=== PATIENT | male | born 1955 | race Caucasian/White ===

== ENCOUNTER 2019-09-19 10:18 | Emergency (ER) | payer OTHER ==
[~2019-09-19] VITALS: Ht 208.3 cm; Wt 93.0 kg
[2019-09-19 10:23] VITALS: BP 108/72
--- NOTE | 2019-09-19 10:41 | NUR ---
PT AMBULATED TO ER BED 2
--- NOTE | 2019-09-19 10:45 | NUR ---
63/M REFERRED FROM URGENT CARE FOR FEVER 102.2. TOOK TYLENOL 2 TABS AT 9 AM TODAY. TEMP 96.1 TEMPORAL AT TRIAGE. RECHECKED ORAL TEMP NOW WITH RESULT OF 98.6. C/O FEVER X 1 DAYS. C/O PAIN IN BL HANDS AND BL KNEE AND LOWER LEG PAIN X 1 YEAR; PT STATES HE BELIEVES HE DOES HAVE ARTHRITIS . DENIES COUGH, SOB, N/V, TRAUMA. PT WELL-APPEARING. NO RESP DISTRESS. AOX4. MED HX: DM
--- NOTE | 2019-09-19 10:49 | NUR ---
ERMD BEDSIDE EVALUATING PT
--- NOTE | 2019-09-19 11:12 | NUR ---
Patient discharged with v/s stable. Written and verbal after care instructions given and explained. Patient alert, oriented and verbalized understanding of instructions. Ambulatory with steady gait. All questions addressed prior to discharge. ID band removed. Patient advised to follow up with PMD. Rx of GABAPENTIN AND MOTRIN given. Patient educated on indication of medication including possible reaction and side effects. Opportunity to ask questions provided and answered.
[2019-09-19 11:15] VITALS: BP 108/72
== END 2019-09-19 11:12 | disposition home or self-care (01) ==
LOC: MED 10:18
DX: E11.40 Type 2 diabetes mellitus with diabetic neuropathy, unspecified (principal); M79.641 Pain in right hand; M79.642 Pain in left hand; M79.671 Pain in right foot; M79.672 Pain in left foot
CPT/HCPCS: 99283

== ENCOUNTER 2019-11-03 08:25 | Emergency (ER) | payer OTHER ==
[~2019-11-03] VITALS: Ht 167.6 cm; Wt 90.7 kg
[~2019-11-03 08:25] MED LIST: ALBU0.0912 IH; APIX5TAB PO
[2019-11-03 08:47] VITALS: BP 131/82
--- NOTE | 2019-11-03 08:57 | NUR ---
pt ambulate to room 9 with steady gait.
--- NOTE | 2019-11-03 08:58 | NUR ---
irene shepard.dr gilliland and [place] fischer aware and informed.
== END 2019-11-03 08:58 | disposition left against medical advice (07) ==
LOC: MED 08:25
DX: M25.552 Pain in left hip (principal); Z53.21 Procedure and treatment not carried out due to patient leaving prior to being seen by health care provider
CPT/HCPCS: 99281

== ENCOUNTER 2019-11-10 18:13 | Emergency (ER) | payer OTHER ==
[~2019-11-10] VITALS: Ht 182.9 cm; Wt 84.4 kg
[2019-11-10 18:13] VITALS: BP 145/54
--- NOTE | 2019-11-10 18:16 | NUR ---
BIBA AND PLACED IN BED 02
--- NOTE | 2019-11-10 18:24 | NUR ---
HX DM, HTN
--- NOTE | 2019-11-10 18:24 | NUR ---
PT BIBA FROM HOME C/O CONSTIPATION W/O ABDOMINAL PAIN. ABDOMEN IS SOFT, DISTENDED, NON-TENDER TO PALPATION. AAOX4 WITH EVEN AND STEADY GAIT; LUNGS CLEAR BL; HR EVEN AND REGULAR; PT DENIES ANY FEVER, CP, SOB, OR COUGH AT THIS TIME; PATIENT STATES PAIN OF 0/10 AT THIS TIME; VSS; PATIENT POSITIONED FOR COMFORT; HOB ELEVATED; BEDRAILS UP X2; BED DOWN. ER MD MADE AWARE OF PT STATUS.
--- NOTE | 2019-11-10 19:13 | NUR ---
ASSUMED PATIENT CARE.
--- NOTE | 2019-11-10 19:15 | NUR ---
REPORT TO ZABRINA ALBERTS. TRANSFER OF CARE AT THIS TIME.
--- NOTE | 2019-11-10 20:00 | NUR ---
A/OX4; GCS 15; CLEAR BREATH SOUNDS BILATERALLY; ABDOMINAL SOUNDS ARE PRESENT; ABDOMEN DISTENDED WITH SLIGHT TENDERNESS; RATES 0/10 PAIN. SKIN DRY AND INTACT. VSS. ERMD MADE AWARE OF STATUS. SIDE RAILSX2; WILL CONTINUE TO MONITOR.
--- NOTE | 2019-11-10 20:14 | NUR ---
PATIENT RESTING IN BED. NO DISTRESS NOTED. WILL CONTINUE TO MONITOR.
[2019-11-10] MEDS ORDERED: SODIUM PHOSPHATE 118 ML ENEM RC ONE (20:40)
--- NOTE | 2019-11-10 20:50 | NUR ---
ADMINISTERED FLEET'S ENEMA. PATIENT TOLERATED WELL. WILL CONTINUE TO MONITOR.
--- NOTE | 2019-11-10 20:50 | NUR ---
PATIENT AMBULATED TO RESTROOM WITH STEADY GAIT.
[2019-11-10] MEDS ORDERED: MAGNESIUM CITRATE 300 ML BTL PO ONE (20:55)
[2019-11-10 21:50] VITALS: BP 135/80
--- NOTE | 2019-11-10 21:50 | NUR ---
PATIENT OKAY TO DISCHARGEPatient discharged with v/s stable. Written and verbal after care instructions given and explained. Patient verbalized understanding. Ambulatory with steady gait. All questions addressed prior to discharge. Advised to follow up with PMD.
== END 2019-11-10 21:50 | disposition home or self-care (01) ==
LOC: MED 18:13
DX: K59.00 Constipation, unspecified (principal); E11.9 Type 2 diabetes mellitus without complications; I10 Essential (primary) hypertension; Z79.899 Other long term (current) drug therapy
CPT/HCPCS: 99284

== ENCOUNTER 2021-03-02 09:52 | Inpatient (IN) | payer OTHER ==
[~2021-03-02] VITALS: Ht 175.3 cm; Wt 89.8 kg
--- NOTE | 2021-03-02 09:56 | NUR ---
BIB WHEELCHAIR TO ER BED 4
[2021-03-02 10:02] VITALS: BP 115/65
[2021-03-02 10:03] VITALS: BP 115/65
--- NOTE | 2021-03-02 10:13 | NUR ---
pt bib private vehicle, sent by for right foot swelling and diabetic ulcer to right ankle x3 days.
--- NOTE | 2021-03-02 10:57 | NUR ---
TELEVISION PICTURE TUBE REBUILDER AT PT BEDSIDE.
--- NOTE | 2021-03-02 11:04 | NUR ---
HOSPITAL ADMITTING CLERK AT PT BEDSIDE.
--- NOTE | 2021-03-02 11:09 | NUR ---
US TECH AT PT BEDSIDE.
[2021-03-02 11:36] LABS: BASOPHILS # (AUTO) 0.1 K/uL (0.00-0.22); EOSINOPHILS # (AUTO) 0.3 K/uL (0-0.4); EOSINOPHILS % (AUTO) 2.7 % (0.0-4.0); HEMATOCRIT 33.3 % (36-52); HEMOGLOBIN 11.2 g/dL (12.0-18.0); LYMPHOCYTES # (AUTO) 1.1 K/uL (2.0-11.5); LYMPHOCYTES % (AUTO) 12.1 % (20.5-51.1); MEAN CORPUSCULAR HEMOGLOBIN 32 pg (27-31); MEAN CORPUSCULAR HGB CONC 34 g/dL (33-37); MEAN CORPUSCULAR VOLUME 95.7 fL (80-94); MONOCYTES # (AUTO) 0.7 K/uL (0.8-1.0); MONOCYTES % (AUTO) 7.3 % (1.7-9.3); NEUTROPHILS # (AUTO) 7.1 K/uL (1.8-7.7); NEUTROPHILS % (AUTO) 76.9 % (42.2-75.2); PLATELET COUNT (AUTO) 349 K/uL (140-450); RED BLOOD CELL COUNT(AUTO) 3.48 MIL/uL (4.20-6.10); RED CELL DISTRIBUTION WIDTH 13.8 % (11.6-13.7); WHITE BLOOD COUNT (AUTO) 9.2 K/uL (4.8-10.8)
[2021-03-02 11:57] LABS: ALBUMIN 2.7 g/dL (3.4-5.0); ANION GAP 12.9 (8-16); CARBON DIOXIDE 28.9 mmol/L (21-32); CREATININE 1.7 mg/dL (0.6-1.3); POTASSIUM 4.8 mmol/L (3.5-5.1); TOTAL BILIRUBIN 0.3 mg/dL (0.0-1.0)
[2021-03-02] MEDS ORDERED: VANCOMYCIN 1,000 MG in DEXTROSE 5% 250 ML IV ONE (12:10)
[2021-03-02] MEDS ORDERED: NACL 0.9% 1,000 ML IV ONE (12:10)
[2021-03-02] MEDS ORDERED: PIPERACILLIN/TAZOBACTAM 3.375 GM in DEXTROSE 5% 50 ML IV ONE (12:10)
[2021-03-02] MEDS ORDERED: VANCOMYCIN 1,000 MG VIAL ONE (12:20)
[2021-03-02] MEDS ORDERED: PIPERACILLIN/TAZOBACTAM 3.375 GM VIAL IV ONE (12:20)
[2021-03-02] MEDS ORDERED: VANCOMYCIN PER PHARMACY MC SCH (13:50)
[2021-03-02] MEDS ORDERED: POTASSIUM CHLORIDE 10 MEQ TABER PO PRN (13:55)
[2021-03-02] MEDS ORDERED: ONDANSETRON 4 MG/2 ML VIAL IVP PRN (13:55)
[2021-03-02] MEDS ORDERED: MAGNESIUM OXIDE 400 MG TAB PO PRN (13:55)
[2021-03-02] MEDS ORDERED: NACL 0.9% 1,000 ML IV SCH (13:55)
[2021-03-02] MEDS ORDERED: DEXTROSE 50% 50 ML SYR IVP PRN (13:55)
[2021-03-02] MEDS ORDERED: ACETAMINOPHEN 325 MG TAB PO PRN (13:55)
[2021-03-02] MEDS ORDERED: HYDROcodone/APAP 5/325 MG 1 TAB TAB PO PRN (13:55)
[2021-03-02] MEDS ORDERED: VANCOMYCIN 500 MG VIAL IV SCH (14:00)
--- NOTE | 2021-03-02 16:01 | NUR ---
PAGED DR MENDEZ REGARDING LACTIC RESULTS.
--- NOTE | 2021-03-02 16:42 | NUR ---
BS 111
[2021-03-02] MEDS: BLOOD GLUCOSE MONITORING 1 DEV DEV FS SCH ×2 (16:46→21:17)
--- NOTE | 2021-03-02 16:46 | NUR ---
PAGED DR MENDEZ 2ND TIME FOR FURTHER ORDERS FOR ELEVATED LACTIC ACID
--- NOTE | 2021-03-02 17:38 | NUR ---
PAGED DR MENDEZ 3RD TIME FOR ORDERS.
--- NOTE | 2021-03-02 18:03 | NUR ---
SPOKE TO DR VELASQUEZ WITH NEW ORDERS NOTED.
[2021-03-02] MEDS: NACL 0.9% 1,000 ML IV SCH (18:13)
--- NOTE | 2021-03-02 18:52 | NUR ---
PAGED DR PIÑA REGARDING CHANGE ON VITALS, PT HR MORE ELEVATED AND BP IS CONSISTENTLY LOWER THEN TRENDS DURING THE DAY. PT APPEARS MORE WEAK. NS INFUSING AT 125ML/HR PER ORDER. WILL CONTINUE TO MONITOR.
--- NOTE | 2021-03-02 19:01 | NUR ---
SPOKE TO DR PIÑA WITH ORDERS FOR 500ML BOLUS
[2021-03-02] MEDS ORDERED: NACL 0.9% 500 ML IV ONE ×2 (19:05)
--- NOTE | 2021-03-02 19:16 | NUR ---
REPORT GIVEN TO CRISTIAN GERBER
--- NOTE | 2021-03-02 19:16 | NUR ---
REPORT RECEIVED FROM ZABRINA HARO FOR CONTINUITY OF PT CARE.
--- NOTE | 2021-03-02 19:25 | NUR ---
PT LAYING IN BED IN L LATERAL POSITION, HOB ELEVATED. BED LOCKED IN LOWEST POSITION W X2 SIDERAILS UP FOR PT SAFETY. C/O R FOOT PAIN 5/10. BREATHING EVEN AND UNLABORED. VSS. NAD NOTED, WILL CONTINUE TO MONITOR. SIGNIFICANT OTHER AT BEDSIDE.
--- NOTE | 2021-03-02 19:38 | NUR ---
NS RUNNING TO L AC W 480ML VTBI AT 125 ML/HR TO L AC 20G.
--- NOTE | 2021-03-02 20:29 | NUR ---
CALLED ZABRINA DILLARD TO GIVE REPORT. NO ANSWER AT THIS TIME. WILL CALL BACK.
[2021-03-02] MEDS: INSULIN LISPRO SLIDING SCALE 100 UNITS/ML VIAL SUBQ PRN (21:20)
--- NOTE | 2021-03-02 21:22 | NUR ---
Pt report given to ZABRINA DILLARD. Transfer of care at this time.
--- NOTE | 2021-03-02 21:30 | NUR ---
RECEIVED REPORT OVER THE PHONE FROM ER NURSE.
--- NOTE | 2021-03-02 21:35 | NUR ---
Patient will be admitted to care of DR. MENDEZ. Admited to MED/SURG. Will go to room 105B. Belongings list completed. Report to ZABRINA DILLARD.
[2021-03-02 22:00] VITALS: BP 97/55
--- NOTE | 2021-03-02 22:00 | NUR ---
PT ARRIVED VIA GURNEY, HE IS AOX4 ON ROOM AIR HE HAS A 20G LAC INTACT AND ASYMPTOMATIC. HIS SKIN IS INTACT EXCEPT FOR SEVERAL SCABS ON THE LEFT ARM AND BILATERAL LOWER LEGS AND FEET NOTED WITH PITTING EDEMA + 2. PT ABDOMEN LARGE FIRM AND DISTENDED. PT SAID HIS LAST BM WAS THIS MORNING. NORMAL SALINE HUNG AND RUNNING ORDERED. ALL FALLS PRECAUTIONS IN PLACE.
--- NOTE | 2021-03-02 23:00 | NUR ---
MRSA SWAB DONE AT BEDSIDE, ADMISSION QUESTIONS ASKED AND ANSWERED WITH ASSISTANCE OF [employer] PHONE QUARTER LINING SMOOTHER SYSTEM WITH QUARTER LINING SMOOTHER [employer] AC[employer] NUMBER #[id number].
--- NOTE | 2021-03-03 | NUR ---
ROUNDS DONE, ALL REQUESTED NEEDS ATTENDED , COMMODE AND URINAL PROVIDED AT BEDSIDE, ALL FALLS PRECAUTIONS IN PLACE.
[2021-03-03] MEDS: NACL 0.9% 1,000 ML IV SCH ×3 (01:45→17:45)
--- NOTE | 2021-03-03 02:00 | NUR ---
ROUNDS DONE, ALL REQUESTED NEEDS ATTENDED. ALL ORDERED PRECAUTIONS IN PLACE.
[2021-03-03 04:00] VITALS: BP 113/66
[2021-03-03] MEDS: BLOOD GLUCOSE MONITORING 1 DEV DEV FS SCH ×4 (05:43→21:00)
[2021-03-03] MEDS: MORPHINE SULFATE 4 MG/ML SYR IVP PRN ×2 (05:45→13:50)
--- NOTE | 2021-03-03 06:01 | NUR ---
PT FINGERSTICK IS 106, NO HUMALOG COVERAGE NEEDED. LAB DRAWS AT BEDSIDE DONE, PT GIVEN IVP/PRN MORPHINE FOR SEVERE PAIN IN RIGHT LEG. PT ASSISTED WITH URINAL , TURNED AND REPOSITIONED IN BED. HE IS RESTING COMFORTABLY WITH ALL ORDERED PRECAUTIONS IN PLACE.
--- NOTE | 2021-03-03 07:15 | NUR ---
RECEIVE REPORT FROM BUSINESS CONTINUITY MANAGER NURSE FOR CONTINUITY OF CARE. PATIENT SLEEPING. NO ACUTE DISTRESS NOTED. PATIENT ON ROOM AIR. ALL SAFETY MEASURES IN PLACE. CALL LIGHT WITHIN REACH. WILL CONTINUE TO MONITOR.
[2021-03-03 07:30] LABS: BASOPHILS # (AUTO) 0.1 K/uL (0.00-0.22); BASOPHILS % (AUTO) 0.9 % (0.0-2.0); EOSINOPHILS # (AUTO) 0.7 K/uL (0-0.4); EOSINOPHILS % (AUTO) 9.1 % (0.0-4.0); HEMATOCRIT 30.9 % (36-52); HEMOGLOBIN 10.3 g/dL (12.0-18.0); LYMPHOCYTES # (AUTO) 1.6 K/uL (2.0-11.5); LYMPHOCYTES % (AUTO) 19.9 % (20.5-51.1); MEAN CORPUSCULAR HEMOGLOBIN 32 pg (27-31); MEAN CORPUSCULAR HGB CONC 33 g/dL (33-37); MEAN CORPUSCULAR VOLUME 96.2 fL (80-94); MONOCYTES # (AUTO) 0.4 K/uL (0.8-1.0); MONOCYTES % (AUTO) 5.5 % (1.7-9.3); NEUTROPHILS # (AUTO) 5.2 K/uL (1.8-7.7); NEUTROPHILS % (AUTO) 64.6 % (42.2-75.2); PLATELET COUNT (AUTO) 335 K/uL (140-450); RED BLOOD CELL COUNT(AUTO) 3.21 MIL/uL (4.20-6.10)
[2021-03-03 07:51] LABS: ANION GAP 12.8 (8-16); CARBON DIOXIDE 28.1 mmol/L (21-32); CREATININE 1.2 mg/dL (0.6-1.3); POTASSIUM 3.9 mmol/L (3.5-5.1)
[2021-03-03 08:00] VITALS: BP 130/71
[2021-03-03] MEDS ORDERED: CLIN300C2 PO (08:57)
[2021-03-03] MEDS: DOCUSATE SODIUM 100 MG GELCAP PO SCH (09:06)
[2021-03-03] MEDS: VANCOMYCIN 1,000 MG in DEXTROSE 5% 250 ML IV SCH ×2 (09:08→22:00)
--- NOTE | 2021-03-03 09:21 | NUR ---
PATIENT AWAKE AND ALERT. NO ACUTE DISTRESS NOTED. PATIENT ON ROOM AIR. PATIENT DENIES PAIN AT THIS TIME. SCHEDULED MEDICATION GIVEN. ALL SAFETY MEASURES IN PLACE. CALL LIGHT WITHIN REACH. WILL CONTINUE TO MONITOR.
--- NOTE | 2021-03-03 10:11 | NUR ---
PATIENT HAS BEEN SCREENED AND CATEGORIZED MODERATE NUTRITION RISK. PATIENT WILL BE SEEN WITHIN 3-5 DAYS OF ADMISSION. 03/05/21 03/07/[address]
--- NOTE | 2021-03-03 11:20 | NUR ---
PATIENT AWAKE AND ALERT. NO ACUTE DISTRESS NOTED. PATIENT ON ROOM AIR. PATIENT DENIES PAIN AT THIS TIME. ALL SAFETY MEASURES IN PLACE. CALL LIGHT WITHIN REACH. WILL CONTINUE TO MONITOR.
--- NOTE | 2021-03-03 11:28 | NUR ---
DC PLANNIN YRS OLD MALE PATIENT WAS ADMITTED FROM HOME WITH A DX OF RIGHT LOER FOOT CELLULITIS. PATIENT HAS A HX OF DM, HTN, HLD AND RIGHT MENISCUS REPAIR . US OF RT LOWER EXT NEGATIVE FOR DVT X RAY OF RT KNEE NO FRACTURE . ADMINISTERED IVF, IV ABX VANCOMYCIN AND CONTINUED HOME MEDS. PT EVALUATION DONE AND RECOMMENDED ACUTE REHAB. CALLED [facility] SPOKE WITH ZANE STATED THEY DON'T HAVE ANY CLINICALS AND NO AUTH# WELL BECAUSE PT IS ON OBSERVATION. CALLED DR MENDEZ DISCUSSED THE NEED FOR INPATIENT PER DR MENDEZ OK TO CHANGE IT INPATIENT AND TRANSFER TO [facility] FOR ACUTE REHAB. FAXED TO [facility] [phone] AND [facility]. CM TO FOLLOW Addendum: 03/03/21 at 1337 by Cinthya Diaz RN DC PLANNING RECEIVED A CALL FROM [facility] SPOKE WITH JUAN MANAGER OUTPATIENT. STATED THEY CAN ACCEPT PATIENT BUT NEEDS AUTHORIZATION. CALLED [facility] SPOKE WITH MATT STATED JAMSHID IS THE CM AND LEFT A MESSAGE. AWAITING FOR AUTH. CM TO FOLLOW. Addendum: 03/03/21 at 1622 by Cinthya Diaz RN DC PLANNING: RECEIVED A CALL FROM [facility] SPOKE WITH JUAN STATED WILL SEND SOMEONE TO EVALUATE PATIENT TOMORROW. RECEIVED AN AUTH# FROM [facility] , FAX IT TO DYLLAN RAZA CM TO FOLLOW Addendum: 03/04/21 at 1154 by Cinthya Diaz RN DC PLANNING RECEIVED A CALL FROM [facility] WITH JUAN STATED PT CAN GO TO ROOM 1131A # TO GIVE REPORT [phone]. ARRANGE TRANSPORT WITH [facility] TECH TIME 3 PM NOTIFIED ARIES GERBER
[2021-03-03] MEDS: INSULIN LISPRO SLIDING SCALE 100 UNITS/ML VIAL SUBQ PRN (11:37)
--- NOTE | 2021-03-03 13:26 | NUR ---
PATIENT AWAKE AND ALERT. NO ACUTE DISTRESS NOTED. PATIENT ON ROOM AIR. PATIENT DENIES PAIN AT THIS TIME. FAMILY MEMBER AT BEDSIDE. ALL SAFETY MEASURES IN PLACE. CALL LIGHT WITHIN REACH. WILL CONTINUE TO MONITOR.
[2021-03-03 16:00] VITALS: BP 145/83
[2021-03-03] MEDS ORDERED: NAPROXEN 500 MG TAB PO PRN (16:20)
--- NOTE | 2021-03-03 19:20 | NUR ---
ENDORSED TO SHIPPING HAND NURSE FOR CONTINUITY OF CARE. PATIENT STABLE.
[2021-03-04] MEDS: NACL 0.9% 1,000 ML IV SCH ×2 (01:45→09:18)
--- NOTE | 2021-03-04 02:12 | NUR ---
restarted sl to left wrist w 22G angiocath. pt tolerated well.
[2021-03-04] MEDS: BLOOD GLUCOSE MONITORING 1 DEV DEV FS SCH ×2 (06:46→11:30)
[2021-03-04 07:08] LABS: BASOPHILS # (AUTO) 0.1 K/uL (0.00-0.22); BASOPHILS % (AUTO) 1.4 % (0.0-2.0); EOSINOPHILS # (AUTO) 0.7 K/uL (0-0.4); EOSINOPHILS % (AUTO) 9.8 % (0.0-4.0); HEMATOCRIT 29.6 % (36-52); HEMOGLOBIN 9.9 g/dL (12.0-18.0); LYMPHOCYTES # (AUTO) 1.6 K/uL (2.0-11.5); LYMPHOCYTES % (AUTO) 22.6 % (20.5-51.1); MEAN CORPUSCULAR HEMOGLOBIN 32 pg (27-31); MEAN CORPUSCULAR HGB CONC 33 g/dL (33-37); MEAN CORPUSCULAR VOLUME 96.1 fL (80-94); MONOCYTES # (AUTO) 0.4 K/uL (0.8-1.0); NEUTROPHILS # (AUTO) 4.3 K/uL (1.8-7.7); NEUTROPHILS % (AUTO) 60.2 % (42.2-75.2); PLATELET COUNT (AUTO) 309 K/uL (140-450); RED BLOOD CELL COUNT(AUTO) 3.08 MIL/uL (4.20-6.10); RED CELL DISTRIBUTION WIDTH 14.3 % (11.6-13.7); WHITE BLOOD COUNT (AUTO) 7.2 K/uL (4.8-10.8)
--- NOTE | 2021-03-04 07:14 | NUR ---
PATIENT SLEEPING. BREATHING EVEN AND UNLABORED. NO ACUTE DISTRESS NOTED. CALL LIGHT WITHIN REACH. WILL CONTINUE TO MONITOR.
[2021-03-04 07:19] LABS: CARBON DIOXIDE 29.9 mmol/L (21-32); CREATININE 0.9 mg/dL (0.6-1.3); POTASSIUM 3.9 mmol/L (3.5-5.1)
[2021-03-04 08:00] VITALS: BP_SYST 130; BP_SYST 134; BP_DIAS 18; BP_DIAS 71
[2021-03-04] MEDS: DOCUSATE SODIUM 100 MG GELCAP PO SCH (09:00)
--- NOTE | 2021-03-04 09:15 | NUR ---
PATIENT AWAKE AND ALERT. NO ACUTE DISTRESS NOTED. COLACE NOT GIVEN DUE TO PATIENT HAVING 3 WATERY STOOLS. ALL OTHER SCHEDULED MEDICATIONS GIVEN. CALL LIGHT WITHIN REACH. ALL SAFETY MEASURES IN PLACE. WILL CONTINUE TO MONITOR.
[2021-03-04] MEDS: VANCOMYCIN 1,000 MG in DEXTROSE 5% 250 ML IV SCH (09:18)
[2021-03-04] MEDS ORDERED: ENOXAPARIN 40 MG/0.4 ML SYR SUBQ SCH (10:00)
[2021-03-04] MEDS ORDERED: LOV40I SUBQ (11:07)
[2021-03-04] MEDS ORDERED: NAPR-1717 PO (11:07)
[2021-03-04] MEDS ORDERED: [UNRECOGNIZED DRUG - CODE] TP (11:07)
--- NOTE | 2021-03-04 11:20 | NUR ---
PATIENT AWAKE AND ALERT. NO ACUTE DISTRESS NOTED. CALL LIGHT WITHIN REACH. ALL SAFETY MEASURES IN PLACE. WILL CONTINUE TO MONITOR.
[2021-03-04] MEDS ORDERED: CLINDAMYCIN 150 MG CAP PO SCH (12:00)
[2021-03-04] MEDS: INSULIN LISPRO SLIDING SCALE 100 UNITS/ML VIAL SUBQ PRN (12:20)
[2021-03-04] MEDS: MORPHINE SULFATE 4 MG/ML SYR IVP PRN (12:30)
--- NOTE | 2021-03-04 12:33 | NUR ---
PATIENT AWAKE. PATIENT REQUESTED PAIN MEDICATION. MORPHINE GIVEN. CALL LIGHT WITHIN REACH. WILL CONTINUE TO MONITOR.
--- NOTE | 2021-03-04 13:15 | NUR ---
PATIENT AWAKE AND ALERT. NO ACUTE DISTRESS NOTED. BROTHER AT BEDSIDE. CALL LIGHT WITHIN REACH. ALL SAFETY MEASURES IN PLACE. WILL CONTINUE TO MONITOR.
--- NOTE | 2021-03-04 13:37 | NUR ---
LATE ENTRY--- NORMAL SALINE DISCONTINUED AT 2152. NS @80 ML HER DISCONTINUED AT 2152. NS @ 150 DISCONTINUED AT 2152. ZOSYN DISCONTINUED AT 2152. VANCOMYCIN DISCONTINUED AT 2152.
--- NOTE | 2021-03-04 15:05 | NUR ---
PATIENT AWAKE AND ALERT WATCHING TV. NO ACUTE DISTRESS NOTED. CALL LIGHT WITH REACH. ALL SAFETY MEASURES IN PLACE. WILL CONTINUE TO MONITOR.
--- NOTE | 2021-03-04 16:40 | NUR ---
PATIENT AWAKE AND ALERT. NO ACUTE DISTRESS NOTED. VS STABLE. PATIENT IV REMOVED. IV CATHETER IN PLACE. WRIST BAND REMOVED. PATIENT DISCHARGED TO [facility]. DISCHARGE INFORMATION GIVEN. PATIENT VERBALIZED UNDERSTANDING. REPORT GIVEN TO BENITO GERBER FROM [facility]. PATIENT TRANSPORTED VIA [facility].
== END 2021-03-04 16:34 | DRG 602 ==
LOC: MED 09:52 → EEVIPCON 13:55 → MMU 13:55 → MTU 19:31 → OBSVTOIN 03-03 11:12
PROVIDERS: ADMIT Student in an Organized Health Care Education/Training Program; ATTEND Student in an Organized Health Care Education/Training Program
DX: L03.115 Cellulitis of right lower limb (principal); J96.01 Acute respiratory failure with hypoxia; N17.9 Acute kidney failure, unspecified; E78.5 Hyperlipidemia, unspecified; E11.9 Type 2 diabetes mellitus without complications; E86.0 Dehydration; S80.01XA Contusion of right knee, initial encounter; X58.XXXA Exposure to other specified factors, initial encounter; G47.33 Obstructive sleep apnea (adult) (pediatric); Z20.822 Contact with and (suspected) exposure to COVID-19; Z79.01 Long term (current) use of anticoagulants; Y93.89 Activity, other specified; Y92.89 Other specified places as the place of occurrence of the external cause; Y99.8 Other external cause status
CPT/HCPCS: 96365; 96368; 99285; G0378; 36415; 73562; 73590; 73610; 80048; 80053; 80202; 82948; 83036; 83605; 85025; 87040; 87081; 93971; 97110; 97112; 97163-GP; 97530; J1650; J2270; J2543; J3370; J7060; Q0092